=== PATIENT | male | born 1955 | race Caucasian/White ===

== ENCOUNTER → 2019-11-26 16:28 | Outpatient (BNVA) | payer BC, SELFPAY | PROVIDERS: PCP Nurse Practitioner Family; Visit Provider Family Medicine | DX: E78.5 Hyperlipidemia, unspecified (principal); E78.2 Mixed hyperlipidemia | CPT/HCPCS: 80053; 80061 ==

== ENCOUNTER → 2020-08-17 11:17 | Outpatient (BNVA) | payer BC, SELFPAY | PROVIDERS: PCP Nurse Practitioner Family; Visit Provider Family Medicine | DX: E78.2 Mixed hyperlipidemia (principal); M25.422 Effusion, left elbow; Z12.5 Encounter for screening for malignant neoplasm of prostate; Z68.29 Body mass index [BMI] 29.0-29.9, adult | CPT/HCPCS: 80053; 80061; 84443; 85025; G0103 ==

== ENCOUNTER → 2022-01-01 09:06 | Outpatient (BNVA) | payer MEDICARE, BC, SELFPAY | PROVIDERS: PCP Nurse Practitioner Family; Visit Provider Family Medicine | DX: E78.5 Hyperlipidemia, unspecified (principal); Z12.5 Encounter for screening for malignant neoplasm of prostate | CPT/HCPCS: 80053; 80061; 84443; 85025; G0103 ==

== ENCOUNTER → 2022-08-30 11:20 | Outpatient (BNVA) | payer MEDICARE, SELFPAY | PROVIDERS: PCP Family Medicine; Visit Provider Family Medicine | DX: E78.2 Mixed hyperlipidemia (principal) | CPT/HCPCS: 80053; 80061 ==

== ENCOUNTER 2023-04-06 16:23 | Emergency (ER) | payer MEDICARE, SELFPAY ==
[2023-04-06 16:31] VITALS: BP 169/98; PULSE 82; RESP 17; TEMP 36.8; O2SAT 96; BMI 30.2
[2023-04-06] MEDS: tetanus-dipt-pertussis 0.5 mL SDV IM (17:05)
[2023-04-06] MEDS: lidocaine-epi 1% 20 mL INJ INJECTION (17:06)
--- NOTE | 2023-04-06 17:09 | PC.NURSE ---
Lidocaine given to provider for administration
[2023-04-06] MEDS: cephALEXin 500 mg Capsule PO (18:55)
--- NOTE | 2023-04-06 18:58 | ED_ITS ---
HPI - Wound/Laceration General: Chief Complaint: Wound/Laceration Stated Complaint: laceration on chin, fall Time Seen by Provider: 04/06/23 16:30 Source: patient Mode of arrival: ambulatory Limitations: no limitations History of Present Illness: Patient presents emergency department today for evaluation treatment of laceration sustained to his chin just prior to arrival. Patient states he was working splitting wood when he had a piece of wood ricocheted back and impacted on the chin. He denies loss of consciousness. He denies jaw pain with difficulty opening or closing his mouth. He denies any obvious dental injury. Patient is denying headache, vomiting, or dizziness. He is not sure of his last tetanus immunization. Review of Systems General: Reports: 10 or more systems reviewed and unremarkable except in HPI and below PFSH ED PFSH: Medical History Hyperlipidemia Surgical History Hx of wisdom tooth extraction Hx of colonoscopy (~2008) Family History Father Cancer colon Social History Smoking and tobacco/nicotine status: never used tobacco/nicotine Second hand smoke exposure: No Alcohol intake: never Substance/Drug Use: never Lives independently: Yes Household members: spouse Marital status: Current occupational status: retired Current occupation: [employer] Current gender identity: Male Physical Exam Const: COMMON NORMALS: no acute distress, patient oriented x3 and alert HENMT: OTHER: Dentition appears intact. No loose or tender teeth on palpation. No obvious tenderness or crepitus on palpation of the mandible or maxilla. Patient does have an abrasion on the inside mucosal membrane of the lower, inner lip. No signs of nasal injury or epistaxis. Patient has a large, V shaped laceration to the chin approximately 5 cm in total length. There is wound edge separation at rest and, when patient smiles or speaks, increased separation is noted. There is some oozing of blood still present. Eye: COMMON NORMALS: Equal, round and reactive pupils present, EOMs intact bilaterally and conjunctivae normal CONJUNCTIVA: Yes conjunctivae normal PUPIL: Yes Equal, round and reactive pupils present Neck/C-Spine: COMMON NORMALS: no JVD Lymph: LYMPHATIC: no lymphadenopathy noted Resp: COMMON NORMALS: normal respiratory effort, No retractions and No use of accessory muscles Cardio: COMMON NORMALS: no JVD and regular rate RATE: regular rate : COMMON NORMALS: Yes no CVA tenderness BLADDER/KIDNEY EXAM: Yes no CVA tenderness Back/Pelvis: COMMON NORMALS: no CVA tenderness, thoracic and lumbar spine normal to inspection and thoraco-lumbar ROM normal Extremity: COMMON NORMALS: normal to inspection, full ROM and no pedal edema Neuro: COMMON NORMALS: patient oriented x3 SENSORIUM/ORIENTATION: Yes alert Skin: COMMON NORMALS: no rashes or lesions noted and turgor normal GENERAL SKIN EXAM: no rashes or lesions noted and turgor normal Procedures Laceration Laceration 1: Site: face (Chin) Size (cm): 5 Description: irregular and contaminated Depth: simple, single layer Local Anesthetic: lidocaine 1% and with epi Amount of anesthesia used (mL): 7 Pre-repair: wound explored, irrigated extensively and extensive debridement (Particulate was removed using pickups after Betadine scrub and rinse.) Skin layer closed with: nylon Size (cm): 5-0 Number of sutures: 12 Technique: simple, interrupted Course Vital Signs: Vital signs: Vital Signs Temperature 98.3 F 04/06/23 19:05 Pulse Rate 82 04/06/23 19:05 Respiratory Rate 17 04/06/23 19:05 Blood Pressure 169/98 04/06/23 19:05 Pulse Oximetry 96 04/06/23 19:05 Oxygen Delivery Me thod Room Air 04/06/23 16:31 MDM - Wound/Laceration Medical Decision Making Patient has a large laceration to his chin. He does not appear to have any signs of neurological change or deficit concerning for head injury. No signs of dental trauma. Patient's tetanus immunization was updated today. Patient's wound was able to be numbed and cleaned prior to repair. Repair resulted in good wound edge approximation and patient was given wound care and suture care instructions. He was given a prophylactic course of antibiotics given the amount of contamination of his wound found during examination. However, the patient has concerns for any developing infection need to be seen and reevaluated. Differential Diagnosis Likely laceration; Unlikely abscess, abrasion or avulsion of skin No radiology studies performed this visit Discharge Plan Discharge Patient Disposition: Home Clinical Impression: Chin laceration Qualifiers: Encounter type: initial encounter Qualified Code(s): S01.81XA - Laceration without foreign body of other part of head, initial encounter Condition: Stable Prescriptions: New cephalexin 500 mg capsule 500 mg PO Q8H 7 Days Qty: 21 0RF No Action atorvastatin 10 mg tablet See Rx Instructions .ROUTE .COMPLEX Qty: 30 0RF Dose Instruction: TAKE ONE TABLET BY MOUTH DAILY Rx Instructions: TAKE ONE TABLET BY MOUTH DAILY Discharge Orders: Discharge ED (Routine); Ordered 04/06/23 Ordered By: Catarina Devries Referrals: Nela Santiago MD [Primary Care Provider] - Discharge Diet: Usual diet Discharge Activity: Increase activity as tolerated Patient Instructions: Care For Your Stitches (ED) Activity Restrictions/Additional Instructions: Examination of your wound shows a full-thickness laceration of your chin. Unfortunately, is quite contaminated but, after receiving your anesthesia you did allow me to scrub within the wound with Betadine and rinsed with saline. There was quite a bit of debris but, I was able to remove the majority of the remaining debris. However, as organic material such as wood and grass are quite porous, they often carry higher levels of bacteria and the risk of infection is higher. For that reason we are putting on a prophylactic course of antibiotics. First dose was provided to you tonight with the rest sent to the pharmacy be picked up and continued in the morning. We also updated your tetanus immunization. You received 12, nonabsorbable sutures which need to be removed at your primary care office in approximately 7 days. We do want you to wash the wound twice a day with warm water and a mild soap. Extremely careful that the suture ends do not catch or snagged on clothing or linens as it can pull through the wound causing the wound to reopen. Watch for any signs of infection incl uding sudden swelling, sudden redness, or draining of thick green or yellow material. If this occurs we recommend you have a wound check as soon as possible. Coding Level of Care Code ED Certified Ophthalmic Medical Technician for [facility]
[2023-04-06 19:05] VITALS: BP 169/98; PULSE 82; RESP 17; TEMP 36.8; O2SAT 96
== END 2023-04-06 19:06 | disposition home or self-care (01) ==
PROVIDERS: Emergency Provider Physician Assistant; PCP Family Medicine
DX: S01.81XA Laceration without foreign body of other part of head, initial encounter (principal); Z23 Encounter for immunization; E78.5 Hyperlipidemia, unspecified; W20.8XXA Other cause of strike by thrown, projected or falling object, initial encounter
CPT/HCPCS: 12052; 90471; 90715; 99283